=== PATIENT | female | born 1990 | race Two or more races ===

== ENCOUNTER 2016-12-31 07:23 | Emergency (ER) | payer OTHER ==
[~2016-12-31] VITALS: Ht 162.6 cm; Wt 56.8 kg
[2016-12-31] MEDS ORDERED: METOCLOPRAMIDE INJ 10MG/2ML VIAL (J2765) IV ONE (08:00)
[2016-12-31] MEDS ORDERED: MORPHINE 4 MG/ML 1ML SYRINGE IV ONE (08:00)
[2016-12-31 08:37] LABS: BASO % 0.2 % (0.0-1.0); EOS # 0.1 K/mm3 (0.0-0.50); EOS % 0.7 % (0.0-3.0); LARGE UNSTAINED CELL % 0.5 % (0.0-4.0); LYMPH # 1.2 K/mm3 (1.5-6.5); LYMPH % 13.4 % (24.0-44.0); MEAN CORPUSCULAR HGB CONC 33.7 g/dl (32.0-36.5); MONO # 0.4 K/mm3 (0.0-0.8); MONO % 4.9 % (0.0-5.0); NEUTROPHILS # 7.1 K/mm3 (1.8-7.7); NEUTROPHILS % 80.3 % (36.0-66.0); PLATELET COUNT, AUTOMATED 213 k/mm3 (150-450); RED CELL DISTRIBUTION WIDTH 12.6 % (11.5-14.5); WHITE BLOOD COUNT 8.8 K/mm3 (4.0-10.0)
--- NOTE | 2016-12-31 08:49 | REP ---
CT abdomen and pelvis without IV or oral contrast: Renal stone protocol: History: Right flank pain. Dysuria. Stone versus pyelonephritis. 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 The lung bases are clear. Axial CT images demonstrate that the liver and the spleen are normal in size homogeneous in texture. No adrenal lesion is seen. There is moderate hydronephrosis and hydroureter on the right side. There is an intrarenal calculus in the lower pole collecting system the right kidney measuring 4 mm in diameter. There is perinephric and periureteral edema on the right. The right ureter is quite dilated and is seen to be dilated well into the true pelvis. Distally it is difficult to trace but there are two irregular calcific opacities in the region of the ureteral pelvic junction on the right which one of which may well be a distal ureteral calculus. These each measure 4 mm in greatest diameter. Urinary bladder is empty at the time of scanning but otherwise unremarkable. The uterus is anteverted. No ovarian lesion is seen. Small and large intestinal bowel loops are normal in the abdomen and pelvis. The appendix is not confidently identified but no inflammatory lesion is seen. No retroperitoneal mass or adenopathy is observed. The left kidney is unremarkable. Gallbladder and pancreas show no evidence of abnormality. Impression: Moderate right-sided hydronephrosis and hydroureter. Two separate calcifications are visible in the region of the distal ureteral vesicle junction, one of which is suspected to be in the distal ureter although it is difficult to trace the distal ureter. There is an intrarenal calculus in the right kidney as well. Signed by Ez Alexander MD 12/31/2016 11:07 A
[2016-12-31 08:52] LABS: ANION GAP 9 MEQ/L (8-16); BLOOD UREA NITROGEN 9 MG/DL (7-18); CALCIUM LEVEL 8.1 MG/DL (8.5-10.1); CARBON DIOXIDE LEVEL 23 MEQ/L (21-32); CHLORIDE LEVEL 110 MEQ/L (98-107); CREATININE FOR GFR 0.76 MG/DL (0.55-1.02); GLOMERULAR FILTRATION RATE > 60.0 (>60); GLUCOSE, FASTING 115 MG/DL (70-105); POTASSIUM SERUM 3.8 MEQ/L (3.5-5.1); SODIUM LEVEL 142 MEQ/L (136-145)
[2016-12-31] MEDS ORDERED: NORCOTAB PO (09:31)
[2016-12-31] MEDS ORDERED: FLOM5CAP PO (09:31)
[2016-12-31] MEDS ORDERED: ZOFR4TAB3 PO (09:31)
[2016-12-31] MEDS ORDERED: KETOROLAC 30 MG/ML VIAL (J1885) IV ONE (10:15)
[2016-12-31 10:59] VITALS: BP 120/77
== END 2016-12-31 11:02 | disposition home or self-care (01) ==
LOC: EDBD 07:23 → EDSEX 07:23 → M ED 07:59
DX: N13.30 Unspecified hydronephrosis (principal); N20.1 Calculus of ureter
CPT/HCPCS: 74176; 80048; 81001; 81025; 85025; 87086; 96374; 96375; 99284; J1885; J2765

== ENCOUNTER → 2017-01-25 | Outpatient (REF) | payer OTHER ==
[~2017-01-25] MED LIST: FLOM5CAP PO; NORCOTAB PO; ZOFR4TAB3 PO
[2017-02-07 00:06] LABS: Size 3x3x3 mm (.)
== END ==
LOC: M SMT 17:18
PROVIDERS: ATTEND Nurse Practitioner Women's Health
DX: Z87.442 Personal history of urinary calculi (principal)

== ENCOUNTER → 2017-05-11 | Outpatient (CLI) | payer OTHER ==
[2017-05-11 13:28] LABS: BASO % 0.1 % (0.0-1.0); EOS # 0.1 10^3/uL (0.0-0.50); EOS % 0.8 % (0.0-3.0); IMMATURE GRANULOCYTE % 0.3 % (0-0); LYMPH # 1.7 10^3/uL (1.5-6.5); LYMPH % 21.6 % (24.0-44.0); MEAN CORPUSCULAR HEMOGLOBIN 28.9 pg (27.0-33.0); MEAN CORPUSCULAR HGB CONC 33.1 g/dl (32.0-36.5); MEAN CORPUSCULAR VOLUME 87.4 fl (80.0-96.0); MONO # 0.5 10^3/uL (0.0-0.8); MONO % 6.7 % (0.0-5.0); NEUTROPHILS # 5.4 10^3/uL (1.8-7.7); NEUTROPHILS % 70.5 % (36.0-66.0); PLATELET COUNT, AUTOMATED 256 10^3/uL (150-450); RED CELL DISTRIBUTION WIDTH 12.4 % (11.5-14.5); WHITE BLOOD COUNT 7.6 10^3/uL (4.0-10.0)
[2017-05-12 10:29] LABS: HBsAg Prenatal NEGATIVE (NEGATIVE)
== END ==
LOC: M SMT 09:56
DX: Z34.81 Encounter for supervision of other normal pregnancy, first trimester (principal); Z3A.08 8 weeks gestation of pregnancy

== ENCOUNTER → 2017-06-09 | Outpatient (REF) | payer OTHER ==
[2017-06-09 15:54] LABS: CHLAMYDIA DNA AMPLIFICATION NEGATIVE (NEGATIVE); GC DNA AMPLIFICATION NEGATIVE (NEGATIVE)
== END ==
LOC: M LAB REF 13:36
DX: Z34.81 Encounter for supervision of other normal pregnancy, first trimester (principal)

== ENCOUNTER → 2017-07-21 | Outpatient (CLI) | payer OTHER | LOC: M RAD 12:29 | DX: Z34.82 Encounter for supervision of other normal pregnancy, second trimester (principal); Z3A.19 19 weeks gestation of pregnancy ==

== ENCOUNTER → 2017-09-21 | Outpatient (CLI) | payer OTHER ==
[2017-09-21 15:04] LABS: HEMATOCRIT 33.9 % (36.0-47.0); HEMOGLOBIN 11.6 g/dl (12.0-15.5); MEAN CORPUSCULAR HEMOGLOBIN 30.9 pg (27.0-33.0); MEAN CORPUSCULAR HGB CONC 34.2 g/dl (32.0-36.5); MEAN CORPUSCULAR VOLUME 90.4 fl (80.0-96.0); PLATELET COUNT, AUTOMATED 206 10^3/uL (150-450); RED BLOOD COUNT 3.75 10^6/uL (4.00-5.40); RED CELL DISTRIBUTION WIDTH 12.7 % (11.5-14.5); WHITE BLOOD COUNT 8.3 10^3/uL (4.0-10.0)
[2017-09-21 15:18] LABS: GLUCOSE CHALLENGE TEST 1 HOUR 132 MG/DL (LESS THAN 140)
== END ==
LOC: M LAB 13:47
DX: Z34.82 Encounter for supervision of other normal pregnancy, second trimester (principal)

== ENCOUNTER 2017-11-15 08:30 | Inpatient (IN) | payer OTHER ==
[2017-11-15] MEDS: BETAMETHASONE SOLUSPAN 6MG/ML INJ 5ML (J0702) IM (09:29)
[2017-11-15] MEDS: PENICILLIN G POTASSIUM IV 5 MU in D5W MINI-BAG PLUS 100 ML IV (09:30)
[2017-11-15] MEDS: LACTATED RINGER'S 1000 ML IV (09:30)
[2017-11-15 09:54] LABS: HEMATOCRIT 36.7 % (36.0-47.0); HEMOGLOBIN 12.5 g/dl (12.0-15.5); MEAN CORPUSCULAR HEMOGLOBIN 31.2 pg (27.0-33.0); MEAN CORPUSCULAR HGB CONC 34.1 g/dl (32.0-36.5); MEAN CORPUSCULAR VOLUME 91.5 fl (80.0-96.0); PLATELET COUNT, AUTOMATED 167 10^3/uL (150-450); RED BLOOD COUNT 4.01 10^6/uL (4.00-5.40); RED CELL DISTRIBUTION WIDTH 13.2 % (11.5-14.5); WHITE BLOOD COUNT 7.5 10^3/uL (4.0-10.0)
[2017-11-15] MEDS ORDERED: OXYTOCIN 30 UNITS IN 0.9% NaCl 500ML IV BAG (J2590) As Ordered (12:21)
[2017-11-15 12:35] LABS: CORD GAS ABE V -2.6; CORD GAS HCO3 V 21.3 MEQ/L; CORD GAS O2 SAT V 88.1 %; CORD GAS PCO2 V 34.9 mmHg; CORD GAS PH V 7.404 UNITS; CORD GAS PO2 V 38.3 mmHg; CORD GAS SBC V 22.1 MEQ/L; CORD GAS TCO2 V 22.4 MEQ/L
[2017-11-15] MEDS: SODIUM CHLORIDE 0.9% 1000 ML IV (12:45)
[2017-11-15] MEDS ORDERED: MOM 30ML SUSPENSION UDC PO (12:45)
[2017-11-15] MEDS ORDERED: RHOGAM 300 MCG (1500 IU) INJ (J2790) IM (12:45)
[2017-11-15] MEDS ORDERED: DIBUCAINE 1% OINTMENT 30GM TOP (12:45)
[2017-11-15] MEDS ORDERED: METHYLERGONOVINE MALEATE 0.2 MG TAB PO (12:45)
[2017-11-15] MEDS ORDERED: DOCUSATE SODIUM 100 MG CAP PO (12:45)
[2017-11-15] MEDS ORDERED: ANUSOL HC CREAM 30GM TOP (12:45)
[2017-11-15] MEDS ORDERED: ACETAMINOPHEN 500 MG TAB PO (12:45)
[2017-11-15] MEDS ORDERED: MEASLES,MUMPS,RUBELLA VACCINE INJ (MMR-II) (90707) SC (12:45)
[2017-11-15] MEDS: OXYTOCIN DRIP 30 UNITS in APPROPRIATE DILUENT 1 EA IV (13:02)
[2017-11-15] MEDS ORDERED: PENICILLIN G POTASSIUM IV 2.5 MU in APPROPRIATE DILUENT 1 EA IV (13:30)
[2017-11-15] MEDS: IBUPROFEN 800 MG TAB PO ×2 (13:43→19:57)
[2017-11-16] MEDS: IBUPROFEN 800 MG TAB PO ×2 (04:55→20:28)
[2017-11-16] MEDS: PRENATAL VITAMINS CHEWABLE TABLET PO (09:25)
[2017-11-16] MEDS: ADACEL/BOOSTRIX VACCINE (DIPHTH/PERTUSS/ACELL/TETANUS)0.5ML SYR (90715) IM (09:26)
[2017-11-17] MEDS: PRENATAL VITAMINS CHEWABLE TABLET PO (08:48)
== END 2017-11-17 10:20 | disposition home or self-care (01) | DRG 775 ==
LOC: M LDO 08:30 → M LDI 08:53 → M OBS 14:29
PROVIDERS: Advanced Practice Midwife
PROC: 10E0XZZ Delivery of Products of Conception, External Approach (ICD-10-PCS; principal; 2017-11-15)
DX: O60.14X0 Preterm labor third trimester with preterm delivery third trimester, not applicable or unspecified (principal); Z37.0 Single live birth; Z3A.35 35 weeks gestation of pregnancy; O24.429 Gestational diabetes mellitus in childbirth, unspecified control; O42.013 Preterm premature rupture of membranes, onset of labor within 24 hours of rupture, third trimester

== ENCOUNTER → 2018-02-25 | Outpatient (REF) | payer OTHER | LOC: M LAB REF 10:20 | DX: J02.9 Acute pharyngitis, unspecified (principal) ==

== ENCOUNTER 2019-03-15 11:42 | Emergency (ER) | payer OTHER ==
[~2019-03-15] VITALS: Ht 162.6 cm; Wt 59.1 kg
[~2019-03-15 11:42] MED LIST changes: +ACET500T15 PO; +FLOM0.4C39 PO; -FLOM5CAP PO; +HYDR-3715 PO; +IBUP80TA PO; -NORCOTAB PO; +ZOFR4TAB14 PO; -ZOFR4TAB3 PO
[2019-03-15] MEDS ORDERED: PRENTAB55 PO (11:58)
[2019-03-15 12:18] LABS: BASO % 0.3 % (0.0-1.0); EOS # 0.1 10^3/uL (0.0-0.5); EOS % 1.8 % (0.0-3.0); HEMATOCRIT 39.5 % (36.0-47.0); HEMOGLOBIN 13.2 g/dl (12.0-15.5); LYMPH # 1.8 10^3/uL (1.5-5.0); LYMPH % 26.3 % (24.0-44.0); MEAN CORPUSCULAR HEMOGLOBIN 30.1 pg (27.0-33.0); MEAN CORPUSCULAR HGB CONC 33.4 g/dl (32.0-36.5); MEAN CORPUSCULAR VOLUME 90.2 fl (80.0-96.0); MONO # 0.5 10^3/uL (0.0-0.8); MONO % 7.3 % (0.0-5.0); NEUTROPHILS # 4.3 10^3/uL (1.5-8.5); NEUTROPHILS % 64.2 % (36.0-66.0); PLATELET COUNT, AUTOMATED 264 10^3/uL (150-450); RED BLOOD COUNT 4.38 10^6/uL (4.00-5.40); WHITE BLOOD COUNT 6.7 10^3/uL (4.0-10.0)
--- NOTE | 2019-03-15 12:57 | REP ---
Clinical: Vaginal bleeding for viability. Technique: Transabdominal and transvaginal first trimester obstetrical ultrasound with color Doppler evaluation. Findings: An irregular shaped gestational sac is identified with yolk sac and pole measuring 2.3 mm (5 weeks 5 days gestational age) without cardiac activity. A small subchorionic hemorrhage is identified inferior to the sac measuring 10 x 2 x 11 mm. Impression: No cardiac activity identified. Findings suggest spontaneous in progress. Correlation with serial HCG levels are recommended. Electronically Signed by Branden Cain MD 03/15/2019 12:49 P
[2019-03-15 13:44] VITALS: BP 126/73
== END 2019-03-15 13:45 | disposition home or self-care (01) ==
LOC: M ED 11:42
DX: O46.91 Antepartum hemorrhage, unspecified, first trimester (principal); R10.2 Pelvic and perineal pain; Z90.89 Acquired absence of other organs; Z3A.01 Less than 8 weeks gestation of pregnancy

== ENCOUNTER → 2019-03-17 | Outpatient (CLI) | payer OTHER ==
[~2019-03-17] MED LIST changes: +PRENTAB55 PO
== END ==
LOC: M LAB 12:14
PROVIDERS: ATTEND Physician Assistant
DX: O26.852 Spotting complicating pregnancy, second trimester (principal); Z3A.22 22 weeks gestation of pregnancy

== ENCOUNTER → 2019-04-01 | Outpatient (CLI) | payer OTHER ==
[2019-04-01 14:41] LABS: BASO % 0.4 % (0.0-1.0); EOS # 0.1 10^3/uL (0.0-0.5); EOS % 1.7 % (0.0-3.0); HEMOGLOBIN 12.6 g/dl (12.0-15.5); LYMPH # 1.6 10^3/uL (1.5-5.0); LYMPH % 20.2 % (24.0-44.0); MEAN CORPUSCULAR HEMOGLOBIN 29.9 pg (27.0-33.0); MEAN CORPUSCULAR HGB CONC 32.3 g/dl (32.0-36.5); MEAN CORPUSCULAR VOLUME 92.6 fl (80.0-96.0); MONO # 0.6 10^3/uL (0.0-0.8); MONO % 6.8 % (0.0-5.0); NEUTROPHILS # 5.7 10^3/uL (1.5-8.5); NEUTROPHILS % 70.5 % (36.0-66.0); PLATELET COUNT, AUTOMATED 246 10^3/uL (150-450); RED BLOOD COUNT 4.21 10^6/uL (4.00-5.40); WHITE BLOOD COUNT 8.1 10^3/uL (4.0-10.0)
[2019-04-01 15:34] LABS: HEPATITIS C VIRUS ABY INDEX 0.1 INDEX (<0.8); HIV 1&2 SCREEN CENTAUR NEGATIVE (NEGATIVE); RUBELLA IgG QUALITATIVE IMMUNE (IMMUNE)
[2019-04-01 16:06] LABS: CHLAMYDIA DNA AMPLIFICATION NEGATIVE (NEGATIVE); GC DNA AMPLIFICATION NEGATIVE (NEGATIVE)
== END ==
LOC: M SMT 10:55
PROVIDERS: ATTEND Advanced Practice Midwife
DX: Z34.81 Encounter for supervision of other normal pregnancy, first trimester (principal); Z3A.00 Weeks of gestation of pregnancy not specified

== ENCOUNTER → 2019-05-17 | Outpatient (REF) | payer OTHER | LOC: M LAB REF 13:58 | PROVIDERS: ATTEND Physician Assistant Medical | DX: R07.0 Pain in throat (principal) ==

== ENCOUNTER → 2019-06-12 | Outpatient (CLI) | payer OTHER ==
--- NOTE | 2019-06-13 04:51 | REP ---
Clinical: Anatomical evaluation. Comparison: 03/15/2019 . Findings: Examination demonstrates a single live intrauterine in cephalic presentation. motion is identified by technologist. Placenta is noted right lateral and grade zero without evidence for placenta previa or abruption. Amniotic fluid volume is normal. Cervix measures 3.5 cm in length and appears closed. No evidence for nuchal cord. Gestational age by current measurements 18 weeks 3-day with GANESH is 11/10/2019 . FHR equals 132 beats per minute. BPD 4.4 cm 19 weeks 2 days HC 15.1 cm 18 weeks 1 day AC 12.9 cm 18 weeks 3 days FL 2.7 cm 18 weeks 2 days HL 2.6 cm 18 weeks 2 days HC/AC ratio 1.17 Estimated weight 236 grams ( 44th percentile). Anatomical assessment demonstrates normal structures including cranium, choroid plexus, cavum, cerebellum/posterior fossa, lungs, four-chamber heart/ventricular outflow tracts, diaphragm, stomach, cord insertion/three-vessel cord, kidneys/bladder, spine, and extremities. Impression: Single live intrauterine in cephalic presentation. Limited evaluation of the facial features. Remainder of the anatomical assessment is complete and normal.
== END ==
LOC: M WHC 12:55
PROVIDERS: ATTEND Advanced Practice Midwife
DX: Z34.82 Encounter for supervision of other normal pregnancy, second trimester (principal)

== ENCOUNTER → 2019-06-27 | Outpatient (CLI) | payer OTHER ==
--- NOTE | 2019-06-27 12:16 | REP ---
Clinical: Anatomical evaluation. Comparison: 06/12/2019 . Findings: Examination demonstrates a single live intrauterine in cephalic presentation. motion is identified by technologist. Placenta is noted posterior/right lateral and grade I without evidence for placenta previa or abruption. Amniotic fluid volume is normal. Cervix measures 3.9 cm in length and appears closed. No evidence for nuchal cord. Gestational age by LMP 20 weeks 4 days with GANESH 11/10/2019 . Gestational age by current measurements 20 weeks 3 days with GANESH 11/11/2019 . FHR equals 160 beats per minute. Estimated weight 355 grams ( 43rd percentile). Anatomical assessment demonstrates normal structures including cranium, choroid plexus, cavum, cerebellum/posterior fossa, nose/lips, lungs, four-chamber heart/ventricular outflow tracts, diaphragm, stomach, cord insertion/three-vessel cord, kidneys/bladder, and extremities. Impression: Single live intrauterine in cephalic presentation demonstrating appropriate interval growth. 2. Facial profile again limited due to positioning. In conjunction with prior examination remainder of the anatomical assessment is complete and normal.
== END ==
LOC: M WHC 10:56
PROVIDERS: ATTEND Advanced Practice Midwife
DX: Z34.82 Encounter for supervision of other normal pregnancy, second trimester (principal)

== ENCOUNTER → 2019-08-12 | Outpatient (REF) | payer OTHER ==
[2019-08-12 17:15] LABS: HEMATOCRIT 35.2 % (36.0-47.0); HEMOGLOBIN 11.7 g/dl (12.0-15.5); MEAN CORPUSCULAR HEMOGLOBIN 31.4 pg (27.0-33.0); MEAN CORPUSCULAR HGB CONC 33.2 g/dl (32.0-36.5); MEAN CORPUSCULAR VOLUME 94.4 fl (80.0-96.0); PLATELET COUNT, AUTOMATED 211 10^3/uL (150-450); RED BLOOD COUNT 3.73 10^6/uL (4.00-5.40); WHITE BLOOD COUNT 10.5 10^3/uL (4.0-10.0)
== END ==
LOC: M PLALAB 14:45
PROVIDERS: ATTEND Advanced Practice Midwife
DX: Z34.92 Encounter for supervision of normal pregnancy, unspecified, second trimester (principal); Z3A.00 Weeks of gestation of pregnancy not specified

== ENCOUNTER → 2019-08-14 | Outpatient (CLI) | payer OTHER ==
--- NOTE | 2019-08-14 09:56 | REP ---
REASON FOR EXAM: Followup anatomy, attention facial features. Multiple ultrasonographic images of the gravid uterus show a single living intrauterine gestation in a breech presentation. Doppler interrogation of the heart shows a heart rate of 139 beats per minute. The placenta is posterior right lateral and not low lying. The subjective amniotic fluid volume is within normal limits. The cervix measures 4.1 cm in length and is closed. BPD 7.0 cm = 28 weeks 2 days HC 25.0 cm = 27 weeks 1 day AC 22.8 cm = 27 weeks 1 day FL 5.3 cm = 28 weeks 0 days The estimated weight is 1082 grams which is at the 44th percentile for a 27 week 3 day gestational age. facial features were well seen today and are within normal limits. Prior exams showed the remainder of the anatomical screen to be within normal limits. Interested parties should review the prior reports. IMPRESSION: Single living intrauterine gestation as described above with an estimated gestational age of 27 weeks 2 days via composite criteria and an estimated date of delivery of 11/11/2019 by today's exam.
== END ==
LOC: M WHC 08:03
PROVIDERS: ATTEND Advanced Practice Midwife
DX: Z34.92 Encounter for supervision of normal pregnancy, unspecified, second trimester (principal); Z3A.27 27 weeks gestation of pregnancy

== ENCOUNTER → 2019-08-15 | Outpatient (CLI) | payer OTHER | LOC: M LAB 07:59 | PROVIDERS: ATTEND Advanced Practice Midwife | DX: Z34.92 Encounter for supervision of normal pregnancy, unspecified, second trimester (principal) ==

== ENCOUNTER 2019-09-22 15:21 | Outpatient (CLI) | payer OTHER ==
[~2019-09-22] VITALS: Ht 162.6 cm; Wt 69.8 kg
[2019-09-22 15:38] VITALS: BP 107/66
== END 2019-09-22 16:13 | disposition home or self-care (01) ==
LOC: M LDO 15:21
PROVIDERS: ATTEND Obstetrics & Gynecology
DX: O36.8130 Decreased fetal movements, third trimester, not applicable or unspecified (principal); Z3A.33 33 weeks gestation of pregnancy
CPT/HCPCS: 59025; G0378; G0463

== ENCOUNTER → 2019-10-10 | Outpatient (REF) | payer OTHER ==
[~2019-10-10] MED LIST changes: +DOCU100C16 PO; +PERCOCET PO
== END ==
LOC: M SFHCWAGY 16:50
PROVIDERS: ATTEND Advanced Practice Midwife
DX: Z36.89 Encounter for other specified antenatal screening (principal); Z3A.35 35 weeks gestation of pregnancy

== ENCOUNTER 2019-10-17 12:53 | Outpatient (CLI) | payer OTHER ==
[~2019-10-17] VITALS: Ht 162.6 cm; Wt 67.9 kg
[~2019-10-17 12:53] MED LIST changes: -DOCU100C16 PO; -PERCOCET PO
[2019-10-17 13:09] VITALS: BP 114/81
[2019-10-17 13:45] LABS: HEMATOCRIT 37.1 % (36.0-47.0); MEAN CORPUSCULAR HEMOGLOBIN 31.7 pg (27.0-33.0); MEAN CORPUSCULAR VOLUME 90.5 fl (80.0-96.0); PLATELET COUNT, AUTOMATED 181 10^3/uL (150-450); WHITE BLOOD COUNT 10.1 10^3/uL (4.0-10.0)
[2019-10-17] MEDS ORDERED: TERBUTALINE SULFATE 1 MG/ML VIAL (J3105) SC ONE (14:15)
[2019-10-17 15:52] VITALS: BP 116/69
== END 2019-10-17 17:49 | disposition home or self-care (01) ==
LOC: M LDO 12:53
PROVIDERS: ATTEND Obstetrics & Gynecology
DX: O32.1XX0 Maternal care for breech presentation, not applicable or unspecified (principal); Z3A.36 36 weeks gestation of pregnancy
CPT/HCPCS: 59025; 59412; 76815; 85027; G0378; G0463; J3105

== ENCOUNTER 2019-10-21 13:01 | Inpatient (IN) | payer OTHER ==
[2019-10-21] VITALS (10 sets, daily range): BP systolic 102–115; BP diastolic 57–79
[~2019-10-21] VITALS: Ht 162.6 cm; Wt 68.2 kg
[~2019-10-21 13:01] MED LIST changes: -DOCU100C16 PO; -PERCOCET PO
[2019-10-21] MEDS ORDERED: ceFAZolin SOD 2 GM in IV 1 EA IV ONE (14:15)
[2019-10-21] MEDS ORDERED: BICITRA 30ML SOLN UDC PO ONE (14:15)
[2019-10-21] MEDS ORDERED: LR 1,000 ML IV ONE (14:15)
[2019-10-21] MEDS ORDERED: LR 1,000 ML IV SCH (14:15)
[2019-10-21 15:03] LABS: HEMATOCRIT 34.2 % (36.0-47.0); HEMOGLOBIN 11.6 g/dl (12.0-15.5); MEAN CORPUSCULAR HEMOGLOBIN 31.6 pg (27.0-33.0); MEAN CORPUSCULAR HGB CONC 33.9 g/dl (32.0-36.5); MEAN CORPUSCULAR VOLUME 93.2 fl (80.0-96.0); PLATELET COUNT, AUTOMATED 149 10^3/uL (150-450); RED BLOOD COUNT 3.67 10^6/uL (4.00-5.40); WHITE BLOOD COUNT 10.3 10^3/uL (4.0-10.0)
[2019-10-21] MEDS ORDERED: MORPHINE PRES-FREE INJ 10 MG/10 ML VIAL (J2274) As Ordered ONE (16:07)
[2019-10-21] MEDS ORDERED: OXYTOCIN INJ 10 UNITS/ML VIAL (J2590) As Ordered ONE (16:08)
[2019-10-21] MEDS ORDERED: NALBUPHINE HCL 10 MG/ML AMP (J2300) IV PRN (16:24)
[2019-10-21] MEDS ORDERED: diphenhydrAMINE 50MG/ML VIAL (J1200) IV PRN ×2 (16:24→18:00)
[2019-10-21] MEDS ORDERED: METOCLOPRAMIDE INJ 10MG/2ML VIAL (J2765 PER 1) IV PRN (16:24)
[2019-10-21] MEDS ORDERED: NALOXONE INJ 0.4MG/1ML VIAL (J2310 PER 1MG) IV PRN ×2 (16:24)
[2019-10-21] MEDS ORDERED: ONDANSETRON 4MG/2ML VIAL IV PRN ×2 (16:24→18:00)
[2019-10-21] MEDS ORDERED: KETAMINE HCL 200 MG/20 ML VIAL As Ordered ONE (16:32)
[2019-10-21] MEDS ORDERED: ONDANSETRON 4MG/2ML VIAL As Ordered ONE (16:40)
[2019-10-21] MEDS ORDERED: KETOROLAC 60 MG/2 ML VIAL As Ordered ONE (16:40)
[2019-10-21] MEDS ORDERED: dexameTHASONE 4 MG/ML 1ML VIAL (J1100 PER 1MG) As Ordered ONE (16:40)
[2019-10-21] MEDS ORDERED: MIDAZOLAM INJ 2MG/2ML VIAL (J2250 PER 1MG) As Ordered ONE (16:49)
[2019-10-21] MEDS ORDERED: OXYTOCIN 30 UNITS IN 0.9% NaCl 500ML IV BAG (J2590) As Ordered ONE (17:18)
[2019-10-21] MEDS ORDERED: PHENYLephrine HCL 500 MCG/5 ML (100MCG/ML) SYRINGE (J2370) As Ordered ONE (17:20)
[2019-10-21] MEDS ORDERED: ePHEDrine SULFATE 25 MG/5 ML(5MG/ML) SYRINGE As Ordered ONE (17:20)
[2019-10-21] MEDS ORDERED: OXYTOCIN DRIP 30 UNITS in IV 1 EA IV SCH (17:43)
[2019-10-21] MEDS: LR 1,000 ML IV SCH (17:43)
[2019-10-21] MEDS ORDERED: RHOGAM 300 MCG (1500 IU) INJ (J2790) IM SCH (17:45)
[2019-10-21] MEDS ORDERED: MEASLES,MUMPS,RUBELLA VACCINE INJ (MMR-II) (90707) SC SCH (17:45)
[2019-10-21] MEDS ORDERED: PERCOCET 5MG/325MG TAB PO PRN (17:45)
[2019-10-21] MEDS ORDERED: ACETAMINOPHEN 500 MG TAB PO PRN (17:45)
[2019-10-21] MEDS ORDERED: PROMETHAZINE 25 MG TAB PO PRN (17:45)
[2019-10-21] MEDS ORDERED: ONDANSETRON 4 MG ORAL DISINTEGRATING TAB PO PRN (17:45)
[2019-10-21] MEDS ORDERED: PERCOCET PO (17:52)
[2019-10-21] MEDS ORDERED: IBUP80TA PO (17:52)
[2019-10-21] MEDS ORDERED: DOCU100C16 PO (17:52)
[2019-10-21] MEDS ORDERED: fentaNYL 100 MCG/2 ML INJECTION (J3010) IV PRN (18:00)
[2019-10-21] MEDS ORDERED: HYDROMORPHONE HCL 0.5 MG/ 0.5 ML SYRINGE (J1170 PER 1) IV PRN (18:00)
[2019-10-21] MEDS ORDERED: oxyCODONE 5MG TAB PO PRN (18:00)
[2019-10-21] MEDS ORDERED: MEPERIDINE INJ 25 MG/ML VIAL (J2175) IV PRN (18:00)
[2019-10-21] MEDS ORDERED: HYDROMORPHONE HCL 0.5 MG/ 0.5 ML SYRINGE (J1170 PER 1) As Ordered ONE (18:29)
[2019-10-21] MEDS: DOCUSATE SODIUM 100 MG CAP PO SCH (21:00)
[2019-10-21] MEDS: KETOROLAC 30 MG/ML 1ML VIAL IV SCH (23:35)
[2019-10-22] MEDS: LR 1,000 ML IV SCH (01:58)
[2019-10-22 02:04] VITALS: BP 92/50
[2019-10-22] MEDS: KETOROLAC 30 MG/ML 1ML VIAL IV SCH ×2 (05:31→12:21)
[2019-10-22 06:09] VITALS: BP 97/51
[2019-10-22] MEDS: PRENATAL VITAMINS CHEWABLE TABLET PO SCH (07:32)
[2019-10-22] MEDS: DOCUSATE SODIUM 100 MG CAP PO SCH ×2 (07:32→20:19)
[2019-10-22 07:33] LABS: HEMATOCRIT 30.6 % (36.0-47.0); HEMOGLOBIN 10.2 g/dl (12.0-15.5); MEAN CORPUSCULAR HEMOGLOBIN 31.4 pg (27.0-33.0); MEAN CORPUSCULAR HGB CONC 33.3 g/dl (32.0-36.5); MEAN CORPUSCULAR VOLUME 94.2 fl (80.0-96.0); PLATELET COUNT, AUTOMATED 148 10^3/uL (150-450); RED BLOOD COUNT 3.25 10^6/uL (4.00-5.40); WHITE BLOOD COUNT 11.6 10^3/uL (4.0-10.0)
--- NOTE | 2019-10-22 09:25 | IPNPDOC ---
Progress Note Date of Service: Oct 22, 2019 Day#: 1 Progress Note SUBJECT: Patient reports she is feeling well. She has been ambulating, voiding spontaneously without issue and tolerating regular diet. Breast feeding without issue. OBJECTIVE: VITAL SIGNS: Within normal limits, afebrile. Alert and oriented times three. Breath sounds clear to auscultation. Heart rate: Regular rate and rhythm, no murmurs, rubs or gallops. Abdomen: Fundus firm at U. Dressing is intact and with minimal drainage. Minimal lochia. ASSESSMENT: Day 1 postoperative PLAN: 1. Continue supportive nursing care and pain management. 2. Anticipate discharge to home tomorrow. 3. Patient to continue ambulating and to shower today. VS, I&O, 24H, Fishbone Vital Signs/I&O Vital Signs Date Time Temp Pulse Resp B/P (MAP) Pulse Ox O2 Delivery O2 Flow Rate FiO2 10/22/19 06:09 97.5 81 17 97/51 (66) 99 10/21/19 18:48 Room Air I&O- Last 24 Hours up to 6 AM 10/22/19 05:59 Intake Total 5775 ml Output Total 2275 ml Balance 3500 ml Laboratory Data 24H LABS Laboratory Tests 2 10/21/19 13:10: Serology Scanned Report Hepatitis B Testing 10/21/19 14:50: Nucleated Red Blood Cells % (auto) 0.0, Syphilis Serology NONREACTIVE 10/22/19 07:07: Nucleated Red Blood Cells % (auto) 0.0 CBC/BMP Laboratory Tests 10/21/19 14:50 10/22/19 07:07 Microbiology Microbiology 10/21/19 Respiratory Virus Panel (PCR) ([facility]) - Final, Complete CANDE CONDE CNM Oct 22, 2019 09:25
[2019-10-22 10:24] VITALS: BP 101/58
[2019-10-22 14:05] VITALS: BP 97/57
[2019-10-22 18:22] VITALS: BP 103/62
[2019-10-22] MEDS: IBUPROFEN 800 MG TAB PO SCH (20:19)
[2019-10-22] MEDS: PERCOCET 5MG/325MG TAB PO PRN (20:43)
[2019-10-22 22:00] VITALS: BP 105/54
[2019-10-23 02:00] VITALS: BP 101/59
[2019-10-23] MEDS: IBUPROFEN 800 MG TAB PO SCH (04:57)
[2019-10-23 06:00] VITALS: BP 101/63
[2019-10-23] MEDS: PRENATAL VITAMINS CHEWABLE TABLET PO SCH (07:36)
[2019-10-23] MEDS: DOCUSATE SODIUM 100 MG CAP PO SCH (07:36)
[2019-10-23 10:00] VITALS: BP 110/67
[2019-10-23] MEDS: PERCOCET 5MG/325MG TAB PO PRN (11:06)
--- NOTE | 2019-10-25 18:32 | DSES ---
DATE OF ADMISSION: 10/21/2019 DATE OF DISCHARGE: 10/23/2019 29-year-old female at 37-3/7 weeks' gestation presents with breech presentation after failed attempt external cephalic version. She is noted to have oligohydramnios. After admitted, decision was made to proceed with delivery due to oligohydramnios and breech presentation. HOSPITAL COURSE: On 10/21/2019, the patient underwent primary section of a viable infant without complications. Her postoperative course was unremarkable. She had accurate return to bladder and bowel function. Her hemoglobin was 10.2 grams per dl. She seemed stable for discharge on postoperative day #2. The did well in transition phase. ASSESSMENT: 37-3/7 weeks' gestation, breech, oligohydramnios post delivery. DIAGNOSIS: 1. Delivered. PROCEDURE: Primary section. DISPOSITION: The patient will followup with Dr. King in two weeks. Instructions were reviewed.
== END 2019-10-23 12:10 | disposition home or self-care (01) | DRG 773 ==
LOC: M LDI 13:01 → M OBS 19:00
PROVIDERS: ADMIT Obstetrics & Gynecology; ATTEND Obstetrics & Gynecology
PROC: 10D00Z1 Extraction of Products of Conception, Low, Open Approach (ICD-10-PCS; principal; 2019-10-21 14:51)
DX: O32.1XX0 Maternal care for breech presentation, not applicable or unspecified (principal); Z37.0 Single live birth; O40.3XX0 Polyhydramnios, third trimester, not applicable or unspecified; Z3A.39 39 weeks gestation of pregnancy

== ENCOUNTER → 2019-10-21 | Outpatient (REF) | payer OTHER ==
[~2019-10-21] MED LIST changes: +DOCU100C16 PO; +PERCOCET PO
== END ==
LOC: M PLALAB 10:59
PROVIDERS: ATTEND Advanced Practice Midwife
DX: Z3A.35 35 weeks gestation of pregnancy (principal)